=== PATIENT | female | born 1980 | race Caucasian/White ===

== ENCOUNTER 2023-11-29 21:42 | Emergency (ER) | payer MEDICAID ==
[~2023-11-29] VITALS: Ht 167.6 cm; Wt 110.2 kg
[~2023-11-29 21:42] MED LIST: BACI15OI13 TP; DICL20GE TP
[2023-11-29 21:54] VITALS: BP_SYST 135; PULSE 91; RESP 16; TEMP 97.2; O2SAT 98
[2023-11-29] MEDS: KETOROLAC TROMETHAMINE 30 MG VIAL IM ONE (23:15)
[2023-11-29] MEDS: DEXAMETHASONE SOD PHOSPHATE 4 MG/ML VIAL PO ONE (23:15)
[2023-11-29] MEDS: ACETAMINOPHEN 500 MG TABLET PO ONE (23:16)
[2023-11-29 23:24] VITALS: BP_SYST 135; PULSE 85; RESP 16; TEMP 97.8; O2SAT 96
== END 2023-11-29 23:34 | disposition home or self-care (01) ==
LOC: SED 21:42
DX: J02.9 Acute pharyngitis, unspecified (principal); H92.01 Otalgia, right ear; J06.9 Acute upper respiratory infection, unspecified; Z79.899 Other long term (current) drug therapy
CPT/HCPCS: 99283; 96372; J1100; J1885